=== PATIENT | male | born 1965 | race African-American/Black ===

== ENCOUNTER 2020-09-10 14:47 | Inpatient (IN) | payer OTHER ==
[~2020-09-10] VITALS: Ht 177.8 cm; Wt 91.6 kg
[2020-09-10 14:57] VITALS: BP 122/74
[2020-09-10 15:13] LABS: ABSOLUTE NEUTROPHILS 7.5 thou/uL (1.4-8.2); BASOPHILS 0.7 % (0.0-2.0); EOSINOPHILS 0.5 % (0.0-3.0); HEMATOCRIT 36.6 % (42.0-52.0); HEMOGLOBIN 11.5 gm/dL (14.0-18.0); LYMPHOCYTES 9.6 % (24.0-44.0); MCH 25.9 pg (26.0-34.0); MCHC 31.6 g/dL (28.0-37.0); MCV 82.1 fL (80.0-100.0); MONOCYTES 8.4 % (1.0-8.0); PLATELET COUNT 167 thou/uL (150-400); POLYS 80.8 % (36.0-66.0); RBC 4.45 mil/uL (4.50-6.00); WBC 9.3 thou/uL (4.0-11.0)
[2020-09-10 16:24] LABS: ANION GAP 3 mmol/L (7-16); BUN 28 mg/dL (7-18); CALCIUM 9.6 mg/dL (8.5-10.1); CHLORIDE 96 mmol/L (98-107); CO2 23 mmol/L (21-32); CREATININE 1.9 mg/dL (0.7-1.3); GLUCOSE 155 mg/dL (74-106); POTASSIUM 4.3 mmol/L (3.5-5.1); SODIUM 122 mmol/L (136-145)
[2020-09-10 16:34] LABS: ALBUMIN 4.1 g/dL (3.4-5.0); LIPASE 378 U/L (73-393); SGOT 5 U/L (15-37); SGPT 17 U/L (16-63); TOTAL BILIRUBIN 0.3 mg/dL (0.2-1.0); TOTAL PROTEIN 7.9 g/dL (6.4-8.2); TROPONIN-I <0.06 ng/mL (<0.06)
[2020-09-10] MEDS ORDERED: CARVEDILOL12.5 MG PO (16:50)
[2020-09-10] MEDS ORDERED: WARFARIN SODIU7.5 MG PO (16:50)
[2020-09-10] MEDS ORDERED: ANTACID325 MG PO (16:51)
[2020-09-10] MEDS ORDERED: PREDNISONE 5 MG5 MG PO (16:53)
[2020-09-10] MEDS ORDERED: NORVASC5 M1 PO (16:54)
[2020-09-10] MEDS ORDERED: TACROLIMUS0.5 MG PO (16:54)
[2020-09-10] MEDS ORDERED: VITAMIN D310 MC2 PO (16:55)
[2020-09-10] MEDS ORDERED: LIPITOR 20 MG T20 M1 PO (16:58)
[2020-09-10] MEDS ORDERED: [UNRECOGNIZED DRUG - OTHER] PO (16:58)
[2020-09-10] MEDS ORDERED: MYCOPHENOLATE500 MG PO (17:37)
[2020-09-10 18:24] LABS: INR 1.9; PROTIME 19.9 Seconds (9.3-11.4)
[2020-09-10 20:02] VITALS: BP 121/70
--- NOTE | 2020-09-10 21:00 | NUR ---
PT ROOM CHANGED AFTER COVID RESULTS CAME BACK NEGATIVE. WAITING FOR ROOM TO BE CLEANED. 355 TO 363
[2020-09-10 21:45] VITALS: BP 129/73
--- NOTE | 2020-09-10 22:36 | NUR ---
PT ARRIVED ON CART FROM ER. ADMISSION COMPLETED, INTERVENTIONS STARTED AND CARE PLAN PLAN UPDATED. PT IS A/O X4 AND UP AD URIEL. COVID PCR WAS NEGATIVE. WILL CONTINUE TO ASSESS AND MONITOR.
[2020-09-11 04:27] VITALS: BP 105/65
[2020-09-11 05:03] LABS: HEMATOCRIT 34.8 % (42.0-52.0); HEMOGLOBIN 10.8 gm/dL (14.0-18.0); MCH 25.5 pg (26.0-34.0); MCHC 31.1 g/dL (28.0-37.0); MCV 82.1 fL (80.0-100.0); RBC 4.24 mil/uL (4.50-6.00); RDW 14.7 % (10.5-14.5); WBC 7.6 thou/uL (4.0-11.0)
[2020-09-11 05:06] LABS: ALBUMIN 3.6 g/dL (3.4-5.0); CALCIUM 9.2 mg/dL (8.5-10.1); CREATININE 1.9 mg/dL (0.7-1.3); PHOSPHORUS 2.9 mg/dL (2.5-4.9)
[2020-09-11 07:10] VITALS: BP 128/70
--- NOTE | 2020-09-11 07:16 | EKG ---
[address] [place] [place] [address] ELECTROCARDIOGRAM REPORT Name: CHAIM STINSON Room #: 363-P ADM IN M.R.#: [id number] Admission: 09/10/20 Attend Phys: Jose Raul Noel MD Discharge: Date of : 69 Report #: [id number] [facility] ED Test Date: 2020-09-10 Test Time: 15:03:05 Pat Name: CHAIM STINSON Department: Room: [facility] Gender: M Negative Assembler: KF : 1965 Requested By: Joseph Leal Order Number: [id number] MD: Brandon Perez Measurements Intervals [place] Rate: 68 P: 10 OK: 171 QRS: -7 QRSD: 98 T: 89 QT: 390 QTc: 415 Interpretive Statements Sinus rhythm Probable left atrial enlargement Baseline wander in lead(s) V6 No previous ECG available for comparison Electronically Signed On 09-11-2020 7:16:03 [employer] by Brandon Perez [email or web address] <ELECTRONICALLY SIGNED> By: Brandon Perez MD, [facility] 09/11/20 0716 [id number] Brandon Perez MD, FACC /EPI
[2020-09-11 09:30] VITALS: BP 122/58
--- NOTE | 2020-09-11 11:38 | 2DMMODE ---
[facility] [place] [address] 2 D/M-MODE ECHOCARDIOGRAM Name: CHAIM STINSON Room #: 363-P ADM IN M.R.#: [id number] Admission: 09/10/20 Attend Phys: Jose Raul Noel MD Discharge: Date of : 69 Report #: [id number] THIS REPORT FOR: cc: MARGARETTE - Malgorzata family physician/PCP MARGARETTE - Malgorzata family physician/PCP Brandon Perez MD [facility] ~ APPROVED REPORT Study performed: 09/11/2020 10:19:14 EXAM: Comprehensive 2D, Doppler, and color-flow Echocardiogram Patient Location: Bedside Status: routine BSA: 2.10 HR: 66 bpm BP: 128/70 mmHg Rhythm: NSR Other Information Study Quality: Good Indications Chest pain, fatigue, short of breath. Hx: Mitral and Tricuspid valve repairs. ESRD. 2D Dimensions RVDd: 38.11 mm IVSd: 11.15 (7-11mm) LVOT Diam: 19.43 (18-24mm) LVDd: 51.41 mm PWd: 9.06 (7-11mm) Ascending Ao: 25.74 (22-36mm) LVDs: 34.34 (25-40mm) Left Atrium: 43.47 (27-40mm) Aortic Root: 35.72 mm Volumes Left Atrial Volume (Systole) Single Plane 4CH: 63.41 mL Single Plane 2CH: 86.29 mL LA ESV Index: 35.00 mL/m2 Aortic Valve AoV Peak Fede.: 2.21 m/s AO Peak Gr.: 19.51 mmHg LVOT Max P.76 mmHg LVOT Max V: 1.56 m/s [facility] [address] [place] [address] 2 D/M-MODE ECHOCARDIOGRAM Name: CHAIM STINSON Room #: 363-P [facility] IN [facility]#: [id number] Admission: 09/10/20 Attend Phys: Jose Raul Noel MD Discharge: Date of : 69 Report #: [id number] Vmax: 2.10 cm2 AI Vmax: 4.01 m/s AI [place]: 3.00 m/s2 AI PHT: 388.06 ms Mitral Valve E/A Ratio: 1.3 MV Decel. Time: 334.60 ms MV E Max Fede.: 1.49 m/s MV A Fede.: 1.16 m/s MV VTI: 491.76 mm MV PHT: 97.04 ms MVA (PHT): 2.32 cm2 IVRT: 78.43 ms Pulmonary Valve PV Peak Fede.: 1.27 m/s PV Peak Gr.: 6.46 mmHg Pulmonary Vein P Vein S: 0.60 m/s P Vein A: 0.25 m/s P Vein D: 0.71 m/s P Vein A Dur.: 138.4 msec P Vein S/D Ratio: 0.85 Tricuspid Valve TR Peak Fede.: 2.59 m/s TR Peak Gr.: 27.00 mmHg Left Ventricle The left ventricle is normal size. There is normal LV segmental wall motion. There is normal left ventricular wall thickness. Left ventricular systolic function is hyperdynamic. LVEF 60%. Right Ventricle The right ventricle is normal size. The right ventricular systolic function is normal. Atria Left atrium is mildly dilated. The right atrium size is normal. Aortic Valve The aortic valve is normal in structure; minimally calcified. Mild to moderate aortic regurgitation; eccentric jet. There is no aortic valvular stenosis. Mitral Valve [facility] [address] [place] [address] 2 D/M-MODE ECHOCARDIOGRAM Name: CHAIM STINSON Room #: 363-P [facility] IN ..#: [id number] Admission: 09/10/20 Attend Phys: Jose Raul Noel MD Discharge: Date of : 69 Report #: [id number] History of mitral valve repair. Peak pressure gradient through the valve is 9mmHg with a mean of 3mmHg. Mild mitral annular calcification. There is no mitral valve regurgitation noted. No evidence of mitral valve stenosis. Tricuspid Valve History of tricuspid valve repair. Mean pressure gradient through the valve is 1mmHg. Mild tricuspid regurgitation. Estimated PAP is 27mmHg plus the right atrial pressure. Pulmonic Valve The pulmonary valve is normal in structure. Mild pulmonic regurgitation. Great Vessels The aortic root is normal in size. IVC is not well visualized. Pericardium There is no pericardial effusion. <Conclusion> Normal left ventricular size/wall thickness Ejection fraction 60% Normal right ventricular size/function Mild left atrial enlargement Color-flow Doppler study was performed of the aortic/mitral/tricuspid/pulmonary valve Mild mitral annular calcification, adequate cusp excursion. No evidence of stenosis or regurgitation Normal aortic valve structure and function Mild tricuspid valve insufficiency, adequate valve excursion Pulmonary systolic pressure estimated 27 mmHg No pericardial effusion <ELECTRONICALLY SIGNED> By: Brandon Perez MD, FACC 09/11/20 1138 1138 1138 Brandon Perez MD, FACC /INF
--- NOTE | 2020-09-11 11:40 | NUR ---
ORDERS RECEIVED FOR EVAL AND TREAT. Pt IS UP AD URIEL. SPOKE WITH Pt WHO STATES HAVING NO DIFFICULTY WITH MOBILITY. Pt DECLINING FORMAL P.T. EVAL
[2020-09-11 12:00] VITALS: BP 122/58
--- NOTE | 2020-09-11 12:58 | NUR ---
INITIAL ASSESSMENT: Received consult. RAVI reviewed chart and spoke with nursing and attending physician. Pt was admitted from home due to hyponatremia/dehydration. Pt with hx of kidney transplant. [facility]. Renal consulted. RAVI met with pt and fiance at bedside. Introduced role of SW. Pt is alert/orientated x 4. Pt reports he is independent with ADLs and does not use any DME. Pt is employed for a [employer] company. Pt states he just received a new PCP at the [facility]. Pt [facility]. No hx of services or post-acute placement. Plan is for pt to discharge home when medically stable. RAVI is following to assist as needed with discharge planning.
[2020-09-11 15:26] VITALS: BP 122/58
--- NOTE | 2020-09-11 16:05 | NUR ---
RN ASSUMED PT'S CARE AT 0700AM, PT IS A&OX3, PT IS ON ROOM AIR, PT 'S VS ARE STABLE, PT'S LAB RESULTS HAVE IMPROVED, PT DENIES PAIN AND SOB , PT CAN GET TO BATH ROOM WITHOUT HELP. 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
== END 2020-09-11 16:14 | disposition home or self-care (01) | DRG 640 ==
LOC: ER 14:47 → EROBS 16:57 → 3W 21:33
PROVIDERS: Emergency Medicine; ADMIT Hospitalist; ATTEND Hospitalist
DX: E87.1 Hypo-osmolality and hyponatremia (principal); N18.6 End stage renal disease; I12.0 Hypertensive chronic kidney disease with stage 5 chronic kidney disease or end stage renal disease; Z94.0 Kidney transplant status; E86.0 Dehydration; E86.1 Hypovolemia; Z20.822 Contact with and (suspected) exposure to COVID-19; Z79.01 Long term (current) use of anticoagulants; Z79.899 Other long term (current) drug therapy; Z95.4 Presence of other heart-valve replacement
CPT/HCPCS: 10879